=== PATIENT | female | born 1955 | race Caucasian/White ===

== ENCOUNTER → 2016-08-30 | Outpatient (CLI) | payer BC ==
--- NOTE | 2016-08-30 20:24 | DI ---
RIGHT FOOT, 08/30/2016 4:41 PM: Clinical History: Right foot pain. Previous Exam: None at this facility. 3 weightbearing views are submitted. There is an avulsion fracture at the base of the proximal phalan x of the great toe on the medial aspect at the attachment of the collateral ligament to the phalanx. The remainder of the examination is normal. Reading: Avulsion fracture at the base of the proximal phalanx of the great toe on the medial side.
== END ==
LOC: MOB RAD 16:43
PROVIDERS: ATTEND Physician Assistant
DX: M79.671 Pain in right foot (principal); S92.414A Nondisplaced fracture of proximal phalanx of right great toe, initial encounter for closed fracture; W18.09XA Striking against other object with subsequent fall, initial encounter; Y93.89 Activity, other specified; Y92.480 Sidewalk as the place of occurrence of the external cause
CPT/HCPCS: 73630